=== PATIENT | female | born 1990 | race Caucasian/White ===

== ENCOUNTER 2017-02-20 00:18 | Emergency (ER) | payer MEDICAID ==
[~2017-02-20] VITALS: Ht 147.3 cm; Wt 56.0 kg
[2017-02-20 00:23] VITALS: Ht 147.3 cm; Wt 56.0 kg
[2017-02-20] MEDS ORDERED: ACET325T33 PO (01:44)
--- NOTE | 2017-02-20 01:56 | ERD ---
ER Documentation Chief Complaint Date/Time DATE: 02/20/17 TIME: 01:48 Chief Complaint vaginal bleeding/abd pain x 1 day, 6 weeks , was here yesterday HPI 26-year-old presents with chief complaint of pelvic pain and vaginal bleeding since yesterday. She states that she is 6 weeks , and has been getting care at a local clinic which she does not know the name of. She denies nausea, vomiting, fever, weakness and syncope. She currently rates her pain a 4 out of 10 in severity, and has not taken any medications for pain relief. She states that she was seen here yesterday in the same complaint , had blood work and an ultrasound done which showed intrauterine gestation with no heart tones suspicious for failed . She is return today because she continues to have vaginal bleeding and pain since yesterday and was unsure whether or not she could take any medication for pain. ROS All systems reviewed and are negative except as per history of present illness. Medications Home Meds Active Scripts Acetaminophen* (Tylenol*) 325 Mg Tablet, 2 TAB PO Q6 Y for PAIN AND OR ELEVATED TEMP, #20 TAB Prov:Sheridan Gonzalez PA-C 02/20/17 Allergies Allergies: Coded Allergies: No Known Drug Allergies (Verified Allergy, Unknown, 02/20/17) PMhx/Soc Medical and Surgical Hx: pt denies Medical Hx, pt denies Surgical Hx History of Surgery: No Anesthesia Reaction: No Hx Neurological Disorder: No Hx Respiratory Disorders: No Hx Cardiac Disorders: No Hx Psychiatric Problems: No Hx Miscellaneous Medical Probl: No Hx Alcohol Use: No Hx Substance Use: No Hx Tobacco Use: No Physical Exam Vitals Vital Signs Date Time Temp Pulse Resp B/P Pulse Ox O2 Delivery O2 Flow Rate FiO2 02/20/17 00:23 98.6 78 20 120/73 98 Physical Exam GENERAL: Non-toxic. No apparent signs of distress. LUNGS: Clear to auscultation. No accessory muscle use. No wheezing, no crackles. No signs or symptoms of respiratory distress. HEART: Regular rate and rhythm. No murmurs, clicks, rubs or gallops. ABDOMEN: Soft, nontender and nondistended. Bowel sounds positive. No rebound or guarding. No gross peritoneal signs. No Amaya or McBurney point tenderness. No gross masses. BACK: No midline tenderness, no costovertebral tenderness. EXTREMITIES: No peripheral cyanosis or edema. No focal pain or notable trauma. Full range of motion. Good capillary refill. NEURO: The patient moves all 4 extremities with 5/5 strength. Cranial nerves are grossly intact. Normal mental status for age. Good muscle tone. SKIN: There is no apparent rash, petechiae, erythema or swelling. Good skin turgor. Results 24 hrs Current Medications Medications (Trade) Dose Ordered Sig/Shey Route PRN Reason Start Time Stop Time Status Last Admin Dose Admin Acetaminophen (Tylenol Tab) 650 mg ONCE ONCE PO 02/20/17 02:00 02/20/17 02:01 Procedures/MDM Patient was registered under incorrect last name during this visit however she has paperwork from her visit to this ER yesterday which shows ultrasound that revealed 6 intrauterine week with no heart tone suspicious for failed . It was suggested that she have a repeat ultrasound in 1 week. Patient has returned today because she continues to have vaginal bleeding and pain since yesterday, and was unsure whether she can take any pain medications. I explained to the patient that bleeding and pain is expected as she is likely going through a miscarriage and she should continue to follow-up with her [facility], suggested repeat ultrasound in 1 week as advised yesterday. She has no change in her symptoms. She has not taken any medication for pain, I suggested use of Tylenol. She appears to be in no acute distress, is normotensive, all vital signs are stable. Additional workup is not warranted at this time as it is not likely to change room attendant. I confirm this with my supervising physician Dr. Ortiz. At this time of low suspicion for ectopic , septic , hypovolemia, ovarian torsion, STI, PID, and acute surgical abdomen. Return precautions discussed. Patient is stable for discharge and outpatient management at this time. Advised to follow-up with [facility] or PCP in 1-2 days, and have repeat ultrasound in 6 days. Departure Diagnosis: Primary Impression: Vaginal bleeding in patient at less than 20 weeks ges... Additional Impression: Threatened Condition: Good Patient Instructions: Possible Miscarriage (Threatened ) Referrals: [facility] [place] [id number] [facility] [address] [place] [id number] OFFICE FAX , [address] [place] [address] DR. VIERA, [place] [address] [place] [address] DR JENKINS, [facility] [address] [address] [facility] [address] [place] [address] DR GARCIA, [facility] [address] [place] [address] [facility] [place] [address] [place] [address] [facility] [id number] - [address] RUIZ, TELMA [address], [place] [address] DR JONES, PATRICK [address] [facility]. [address], [place] [address] DR STALEY, FARID [address] [place] [address] Additional Instructions: Llame al doctor MAANA y silviano vero SCOOTER PARA DENTRO DE 1-2 SHAH.Dgale a la secretaria que nosotros le instruimos hacer esta scooter.Avise o llame si arevalo condicin se empeora antes de la scooter. Regresa aqui si peor o no mejor. Sheridan Gonzalez PA-C February 20, 2017 01:56
[2017-02-20] MEDS ORDERED: ACETAMINOPHEN 325 MG TAB PO ONE (02:00)
[2017-02-20 02:22] VITALS: BP 124/71; PULSE 69; RESP 16; TEMP 99
== END 2017-02-20 02:23 | disposition home or self-care (01) ==
LOC: FTE 00:18
DX: O20.9 Hemorrhage in early pregnancy, unspecified (principal); Z3A.01 Less than 8 weeks gestation of pregnancy
CPT/HCPCS: Z7502; Z7610; 99283